=== PATIENT | male | born 1995 | race Caucasian/White ===

== ENCOUNTER 2021-03-04 13:23 | Emergency (ER) | payer OTHER ==
[~2021-03-04] VITALS: Ht 180.3 cm; Wt 93.0 kg
[2021-03-04 13:26] VITALS: BP 150/86
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
[2021-03-04 14:38] VITALS: BP 150/86
--- NOTE | 2021-03-04 14:38 | NUR ---
Patient discharged with v/s stable. Written and verbal after care instructions given and explained. Patient verbalized understanding. Ambulatory with steady gait. All questions addressed prior to discharge. Advised to follow up with PMD.
== END 2021-03-04 14:38 | disposition home or self-care (01) ==
LOC: MED 13:23
DX: S83.92XA Sprain of unspecified site of left knee, initial encounter (principal); V98.8XXA Other specified transport accidents, initial encounter; Y93.89 Activity, other specified; Y92.89 Other specified places as the place of occurrence of the external cause; Y99.8 Other external cause status
CPT/HCPCS: 73562; 99283